=== PATIENT | female | born 1995 | race Caucasian/White ===

== ENCOUNTER 2023-06-07 22:02 | Emergency (ER) | payer BC ==
[~2023-06-07] VITALS: Ht 165.1 cm; Wt 52.2 kg
--- NOTE | 2023-06-07 23:38 | NUR ---
Ambulated to room #4, informed of plan of care, no s/s of any distress noted at this time, will continue to monitor.
--- NOTE | 2023-06-07 23:42 | NUR ---
ER provider at bedside for exam.
[2023-06-08] MEDS ORDERED: NAPROXEN 500 MG TABLET PO ONE
[2023-06-08] MEDS ORDERED: NAPROXEN 500 MG TABLET ONE (00:06)
[2023-06-08] MEDS ORDERED: NAPR500T6 PO (00:34)
[2023-06-08] MEDS ORDERED: CYCL5TAB PO (00:34)
--- NOTE | 2023-06-08 00:37 | NUR ---
[facility]I GIVEN REMAINS STABLE FOR DISCHARGE.
[2023-06-08 00:38] VITALS: BP 112/73; O2SAT 100
== END 2023-06-08 00:38 | disposition home or self-care (01) ==
LOC: ER 22:02
DX: S06.0X0A Concussion without loss of consciousness, initial encounter (principal); S13.4XXA Sprain of ligaments of cervical spine, initial encounter; J45.909 Unspecified asthma, uncomplicated; Z79.899 Other long term (current) drug therapy; V43.52XA Car driver injured in collision with other type car in traffic accident, initial encounter; Y93.89 Activity, other specified; Y92.89 Other specified places as the place of occurrence of the external cause; Y99.8 Other external cause status
CPT/HCPCS: A4663